=== PATIENT | female | born 1930 | race Caucasian/White ===

== ENCOUNTER → 2016-06-16 | Outpatient (CLI) | payer MEDICARE, OTHER | END | disposition home or self-care (01) | LOC: PCVCCLINIC 11:28 | PROVIDERS: ATTEND Internal Medicine | DX: I25.10 Atherosclerotic heart disease of native coronary artery without angina pectoris (principal); I35.0 Nonrheumatic aortic (valve) stenosis; I65.29 Occlusion and stenosis of unspecified carotid artery; I10 Essential (primary) hypertension; E78.5 Hyperlipidemia, unspecified; I73.9 Peripheral vascular disease, unspecified | CPT/HCPCS: 80061; 93005; G0463 ==

== ENCOUNTER → 2016-12-22 | Outpatient (CLI) | payer MEDICARE, OTHER ==
--- NOTE | 2016-12-22 09:00 | PCVCIMAG ---
APPROVED REPORT Study performed: 12/22/2016 08:00:53 EXAM: Comprehensive 2D, Doppler, and color-flow Echocardiogram Patient Location: Echo lab Status: routine BSA: 1.54 HR: 71 bpmBP: 130/70 mmHg Rhythm: NSR w/ PVCs Other Information Study Quality: Adequate Indications CAD Aortic Stenosis, CABG 2D Dimensions LVEF(%): 26.80 (>50%) IVSd: 11.97 (7-11mm)LVOT Diam: 22.00 (18-24mm) LVDd: 34.79 mm PWd: 11.58 (7-11mm) LVDs: 30.59 (25-40mm) Left Atrium: 42.00 (27-40mm) Aortic Root: 32.42 mm LV Single Plane 4CH: 55.70 % LV Single Plane 2CH: 55.51 %Mallory's LVEF: 55.60 % Biplane EF: 56.0 % Volumes Left Atrial Volume (Systole) Single Plane 4CH: 73.88 mLSingle Plane 2CH: 100.71 mL LA ESV Index: 57.00 mL/m2 Aortic Valve AoV Peak Juan.: 2.65 m/s AO Peak Gr.: 28.10 mmHgLVOT Max P.67 mmHg AO Mean Gr.: 17.47 mmHgLVOT Mean P.97 mmHg AO V2 Mean: 2.02 m/sLVOT Max V: 0.96 m/s AO V2 VTI: 58.13 cmLVOT Mean V: 0.65 m/s LILIBETH (VTI): 1.45 [id number] V1 VTI: 22.15 cm LILIBETH Vmax: 1.37 cm2 AI Vmax: 4.00 m/sSV (LVOT): 84.15 mL AI [place]: 3.49 m/s2 AI PHT: 342.93 ms Mitral Valve E/A Ratio: 0.6 MV Decel. Time: 346.43 ms MV E Max Juan.: 0.61 m/s MV A Juan.: 1.04 m/s IVRT: 162.63 ms Pulmonary Valve PV Peak Juan.: 0.81 m/sPV Peak Gr.: 2.63 mmHg Pulmonary Vein P Vein S: 0.31 m/sP Vein A: 0.29 m/s P Vein D: 0.42 m/sP Vein A Dur.: 141.9 msec P Vein S/D Ratio: 0.74 Tricuspid Valve TR Peak Juan.: 2.32 m/s TR Peak Gr.: 21.56 mmHg Left Ventricle The left ventricle is normal size. There is normal LV segmental wall motion. Mild concentric left ventricular hypertrophy. Left ventricular systolic function is normal. The left ventricular ejection fraction is within the normal range. LVEF is 55%. Grade I - abnormal relaxation pattern. Right Ventricle The right ventricle is normal size. The right ventricular systolic function is normal. Atria Left atrium is severely dilated. The right atrium size is normal. Aortic Valve The aortic valve is moderately sclerotic. Mild aortic regurgitation. There is mild valvular aortic stenosis. Calculated aortic valve area is 1.4 cm2 with maximum pressure gradient of 28 mmHg and mean pressure gradient of 17 mmHg. Mitral Valve Mild mitral annular calcification. Mild mitral valve regurgitation No evidence of mitral valve stenosis. Tricuspid Valve The tricuspid valve is normal in structure. Mild tricuspid regurgitation with PAP of 29 mmHg. Pulmonic Valve The pulmonary valve is normal in structure. There is no pulmonic valvular regurgitation. Great Vessels The aortic root is normal in size. IVC is normal in size and collapses with >50% inspiration Pericardium There is no pericardial effusion. <Conclusion> Left ventricular systolic function is normal. There is normal LV segmental wall motion. LVEF is 55%. Grade I - abnormal relaxation pattern. Left atrium is severely dilated. The aortic valve is moderately sclerotic. Calculated aortic valve area is 1.4 cm2 with maximum pressure gradient of 28 mmHg and mean pressure gradient of 17 mmHg. Mild mitral annular calcification. Mild mitral valve regurgitation Pulmonary artery pressure of 30mmHg There is no pericardial effusion.
--- NOTE | 2016-12-22 09:29 | PCVCIMAG ---
APPROVED REPORT Indications Stenosis Risk Factors Hypertension: Hyperlipidemia Doppler Spectral Velocity Analysis PSV / EDVPSV / EDV ECA (R) 112 / 8 cm/sECA (L) 102 / 8 cm/s dICA (R) 60 / 11 cm/sdICA (L) 108 / 14 cm/s Sandi (R) 184 / 36 cm/smICA (L) 86 / 16 cm/s pICA (R) 141 / 25 cm/spICA (L) 96 / 18 cm/s Bulb (R) 74 / 9 cm/sBulb (L) 65 / 12 cm/s dCCA (R) 94 / 10 cm/sdCCA (L) 108 / 12 cm/s mCCA (R) 60 / 9 cm/smCCA (L) 92 / 12 cm/s Vert (R) 55 / 8 cm/sVert (L) 46 / 5 cm/s ICA/CCA 1.96ICA/CCA 1.00 Basic Measurements Blood Pressure: Pulses: Right Left RightLeft Brachial(Sitting) 130/[id number]/76mmHgTemporal Real Time B-Mode Imaging Vert. (R)AntegradeVert. (L)Antegrade Findings The right carotid bulb has moderately severe calcified plaque. The right proximal internal carotid artery shows 60-70% stenosis. The right common carotid artery shows <40% stenosis. The right external carotid artery shows no significant stenosis. The left carotid bulb has moderate calcified plaque. The left proximal internal carotid artery shows <40% stenosis. The left common carotid artery shows <40% stenosis. The left external carotid artery shows no significant stenosis. Conclusion 1. Right internal carotid artery stenosis (60-70%) 2. Left internal carotid artery stenosis (<40%) 3. Bilateral common carotid artery stenoses (<40%) 4. Antegrade vertebral flow
== END | disposition home or self-care (01) ==
LOC: PCVCIMAG 07:59
PROVIDERS: ATTEND Internal Medicine
DX: I08.3 Combined rheumatic disorders of mitral, aortic and tricuspid valves (principal); I65.23 Occlusion and stenosis of bilateral carotid arteries; I25.10 Atherosclerotic heart disease of native coronary artery without angina pectoris; I10 Essential (primary) hypertension; I49.3 Ventricular premature depolarization; I73.9 Peripheral vascular disease, unspecified; E78.2 Mixed hyperlipidemia; Z95.1 Presence of aortocoronary bypass graft; Z79.82 Long term (current) use of aspirin; Z88.0 Allergy status to penicillin; Z91.041 Radiographic dye allergy status
CPT/HCPCS: 93306; 93880

== ENCOUNTER → 2017-06-22 | Outpatient (CLI) | payer MEDICARE, OTHER | END | disposition home or self-care (01) | LOC: PCVCCLINIC 10:06 | DX: I25.10 Atherosclerotic heart disease of native coronary artery without angina pectoris (principal); I65.23 Occlusion and stenosis of bilateral carotid arteries; I35.0 Nonrheumatic aortic (valve) stenosis; I10 Essential (primary) hypertension; I73.9 Peripheral vascular disease, unspecified; E78.5 Hyperlipidemia, unspecified; R94.31 Abnormal electrocardiogram [ECG] [EKG]; Z79.82 Long term (current) use of aspirin; Z79.899 Other long term (current) drug therapy; Z88.0 Allergy status to penicillin | CPT/HCPCS: 80061; 93005; G0463 ==

== ENCOUNTER → 2017-12-21 | Outpatient (CLI) | payer MEDICARE, OTHER ==
--- NOTE | 2017-12-21 09:30 | PCVCIMAG ---
APPROVED REPORT Indications Stenosis Doppler Spectral Velocity Analysis PSV / EDVPSV / EDV ECA (R) 129 / 6 cm/sECA (L) 101 / 11 cm/s dICA (R) 69 / 13 cm/sdICA (L) 41 / 12 cm/s Sandi (R) 150 / 24 cm/smICA (L) 95 / 14 cm/s pICA (R) 158 / 39 cm/spICA (L) 104 / 14 cm/s Bulb (R) 55 / 6 cm/sBulb (L) 80 / 13 cm/s dCCA (R) 99 / 12 cm/sdCCA (L) 103 / 10 cm/s mCCA (R) 77 / 9 cm/smCCA (L) 87 / 20 cm/s Vert (R) 131 / 13 cm/sVert (L) 50 / 0 cm/s ICA/CCA 1.60ICA/CCA 1.01 Real Time B-Mode Imaging Vert. (R)AntegradeVert. (L)Antegrade Findings The right carotid bulb has moderately severe plaque. The right proximal internal carotid artery shows 60-70% stenosis. The right common carotid artery shows <40% stenosis. The right external carotid artery shows no significant stenosis. The left carotid bulb has moderate calcified plaque. The left proximal internal carotid artery shows <40% stenosis. The left common carotid artery shows <40% stenosis. The left external carotid artery shows no significant stenosis. Conclusion 1. Right internal carotid artery stenosis (60-70%) 2. Left internal carotid artery stenosis (<40%) 3. Bilateral common carotid artery stenoses (<40%) 4. Antegrade vertebral flow
--- NOTE | 2017-12-21 10:21 | PCVCIMAG ---
APPROVED REPORT Study performed: 12/21/2017 08:09:13 EXAM: Comprehensive 2D, Doppler, and color-flow Echocardiogram Patient Location: Echo lab Room #: 2Status: routine BSA: 1.55 HR: 68 bpmBP: 128/80 mmHg Rhythm: NSR Other Information Study Quality: Adequate Risk Factors: Cardiac Risk Factors: HTN Indications Aortic Valve Disease CAD S/P CABG 2D Dimensions IVSd: 9.87 (7-11mm)LVOT Diam: 20.00 (18-24mm) LVDd: 40.06 mm PWd: 10.44 (7-11mm)Ascending Ao: 32.35 (22-36mm) LVDs: 30.54 (25-40mm) Left Atrium: 39.22 (27-40mm) Aortic Root: 22.17 mm LV Single Plane 4CH: 57.09 % LV Single Plane 2CH: 51.24 %Mallory's LVEF: 54.17 % Biplane EF: 54.6 % Volumes Left Atrial Volume (Systole) Single Plane 4CH: 111.80 mLSingle Plane 2CH: 78.26 mL Biplane LA Volume: 98.00 mLLA ESV Index: 63.00 mL/m2 Aortic Valve AoV Peak Juan.: 2.30 m/s AO Peak Gr.: 22.13 mmHgLVOT Max P.33 mmHg AO Mean Gr.: 13.18 mmHgLVOT Mean P.76 mmHg AO V2 Mean: 1.72 m/sLVOT Max V: 0.90 m/s AO V2 VTI: 60.97 cmLVOT Mean V: 0.41 m/s LVOT V1 VTI: 14.61 cm LILIBETH Vmax: 1.20 cm2 AI Vmax: 2.66 m/sSV (LVOT): 43.03 mL AI Latimer: 1.96 m/s2 AI PHT: 444.75 ms Mitral Valve E/A Ratio: 0.9 MV Decel. Time: 230.27 ms MV E Max Juan.: 0.84 m/s MV A Juan.: 0.97 m/s MV Max Juan.: 6.09 m/s MV Mean Juan.: 4.58 m/s IVRT: 152.25 ms TDI E/Lateral E': 12.00E/Medial E': 21.00 Medial E' Juan.: 0.04 m/s Lateral E' Juan.: 0.07 m/s Pulmonary Valve PV Peak Juan.: 0.79 m/sPV Peak Gr.: 2.51 mmHg Pulmonary Vein P Vein S: 0.56 m/sP Vein A: 0.33 m/s P Vein D: 0.51 m/sP Vein A Dur.: 166.1 msec P Vein S/D Ratio: 1.10 Tricuspid Valve TR Peak Juan.: 2.61 m/s TR Peak Gr.: 27.23 mmHg TV Vmax: 0.64 m/sPA Pressure: 34.00 mmHg Left Ventricle The left ventricle is normal size. There is normal left ventricular wall thickness. Left ventricular systolic function is normal. Mild hypokinesis base of inferior wall. LVEF is 55%. Grade I - abnormal relaxation pattern. Right Ventricle The right ventricle is normal size. The right ventricular systolic function is normal. Atria Left atrium is severely dilated. The right atrium size is normal. Aortic Valve Aortic valve is trileaflet. Aortic valve leaflets are moderately sclerotic with decreased opening. Mild aortic regurgitation is present. Moderate aortic stenosis. Highest mean aortic valve gradient is 17 mmHg. Peak aortic valve gradient is 21mmHg. Calculated LILIBETH by the continuity equation is 1.2 cm2. Mitral Valve Mitral valve leaflets are mildly thickened and calcified. Mild to moderate mitral regurgitation. No evidence of mitral valve stenosis. Tricuspid Valve The tricuspid valve is normal in structure. Mild tricuspid regurgitation with a pressure of 34 mmHg. Pulmonic Valve The pulmonary valve is normal in structure. There is no pulmonic valvular regurgitation. Great Vessels The aortic root is normal in size. The ascending aorta is normal in size. Aortic arch is normal in caliber. The inferior vena cava is not visualized. Pericardium There is no pericardial effusion. There is no pleural effusion. <Conclusion> Left ventricular systolic function is normal. Mild hypokinesis base of inferior wall. LVEF is 55%. Grade I - abnormal relaxation pattern. Left atrium is severely dilated. Aortic valve is trileaflet. Mild-moderate aortic stenosis. Peak 21mmHg, mean aortic valve gradient is 17 mmHg. Calculated LILIBETH by the continuity equation is 1.2 cm2. Mild aortic regurgitation Mitral valve leaflets are mildly thickened and calcified. Mild to moderate mitral regurgitation. Mild tricuspid regurgitation with a pulmonary artery pressure of 34 mmHg. There is no pericardial effusion.
== END | disposition home or self-care (01) ==
LOC: PCVCIMAG 13:43
PROVIDERS: ATTEND Internal Medicine
DX: I65.23 Occlusion and stenosis of bilateral carotid arteries (principal); I35.0 Nonrheumatic aortic (valve) stenosis; I25.10 Atherosclerotic heart disease of native coronary artery without angina pectoris; I10 Essential (primary) hypertension; E78.5 Hyperlipidemia, unspecified; I73.9 Peripheral vascular disease, unspecified; Z95.1 Presence of aortocoronary bypass graft; Z88.0 Allergy status to penicillin; Z88.8 Allergy status to other drugs, medicaments and biological substances; Z79.82 Long term (current) use of aspirin; Z79.899 Other long term (current) drug therapy
CPT/HCPCS: 80061; 93005; 93306; 93880; G0463

== ENCOUNTER → 2018-07-19 | Outpatient (CLI) | payer MEDICARE, OTHER | END | disposition home or self-care (01) | LOC: PCVCCLINIC 13:00 | PROVIDERS: ATTEND Internal Medicine | DX: I25.10 Atherosclerotic heart disease of native coronary artery without angina pectoris (principal); I11.0 Hypertensive heart disease with heart failure; I50.32 Chronic diastolic (congestive) heart failure; I35.0 Nonrheumatic aortic (valve) stenosis; I65.23 Occlusion and stenosis of bilateral carotid arteries; E78.5 Hyperlipidemia, unspecified; I73.9 Peripheral vascular disease, unspecified; Z79.82 Long term (current) use of aspirin | CPT/HCPCS: 36415; 80061; 93005; G0463 ==

== ENCOUNTER → 2018-07-19 | Outpatient (CLI) | payer MEDICARE, OTHER ==
--- NOTE | 2018-07-19 22:49 | PCVCIMAG ---
EXAM: VENOUS DUPLEX BOTH LOWER EXTREMITIES INDICATION: Leg pain and swelling. FINDINGS: Right leg: No thrombus in the common femoral, main femoral, or popliteal veins. These veins are compressible with phasic flow. Calf veins are unremarkable where seen. Left leg: No thrombus in the common femoral, main femoral, or popliteal veins. These veins are compressible with phasic flow. Calf veins are unremarkable where seen. IMPRESSION: No evidence of deep venous thrombosis in either lower extremity as detailed above. LOC:[id number]
== END | disposition home or self-care (01) ==
LOC: PCVCIMAG 15:33
PROVIDERS: ATTEND Internal Medicine
DX: M79.604 Pain in right leg (principal); M79.605 Pain in left leg; M79.89 Other specified soft tissue disorders; I25.10 Atherosclerotic heart disease of native coronary artery without angina pectoris; I11.0 Hypertensive heart disease with heart failure; I50.32 Chronic diastolic (congestive) heart failure; I35.0 Nonrheumatic aortic (valve) stenosis; I65.23 Occlusion and stenosis of bilateral carotid arteries; E78.5 Hyperlipidemia, unspecified; I73.9 Peripheral vascular disease, unspecified; R94.31 Abnormal electrocardiogram [ECG] [EKG]; Z88.0 Allergy status to penicillin; Z79.82 Long term (current) use of aspirin; Z79.899 Other long term (current) drug therapy; Z91.041 Radiographic dye allergy status
CPT/HCPCS: 36415; 80061; 93005; 93970; G0463

== ENCOUNTER → 2019-01-24 | Outpatient (CLI) | payer MEDICARE, OTHER | END | disposition home or self-care (01) | LOC: PCVCCLINIC 11:00 | PROVIDERS: ATTEND Internal Medicine | DX: I25.10 Atherosclerotic heart disease of native coronary artery without angina pectoris (principal); I11.0 Hypertensive heart disease with heart failure; I50.32 Chronic diastolic (congestive) heart failure; I35.0 Nonrheumatic aortic (valve) stenosis; I65.23 Occlusion and stenosis of bilateral carotid arteries; I73.9 Peripheral vascular disease, unspecified; Z88.0 Allergy status to penicillin; Z91.041 Radiographic dye allergy status | CPT/HCPCS: 36415; 80061; 93005; G0463 ==

== ENCOUNTER → 2019-01-31 | Outpatient (CLI) | payer MEDICARE, OTHER ==
--- NOTE | 2019-01-31 11:52 | PCVCIMAG ---
EXAM: LEFT LOWER EXTREMITY ARTERIAL DUPLEX INDICATION: Peripheral Arterial Disease. Leg pain. Left foot ulcer. FINDINGS: Left Leg: Moderate blunting of the arterial waveform in the common femoral artery raises concern for significant left iliac stenosis. Profunda femoral artery is patent. Long segment occlusion of the [place] superficial femoral artery with refilling of the mid/upper left popliteal artery. Occlusion of the distal [place] popliteal artery and trifurcation. Flow was not well-visualized in the distal portions of the anterior tibial, peroneal, or posterior tibial arteries. 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 Occlusion throughout the [place] left superficial femoral artery. Occlusion of the distal [place] left popliteal artery and trifurcation as reviewed above. LOC:[id number]
== END | disposition home or self-care (01) ==
LOC: PCVCIMAG 10:53
PROVIDERS: ATTEND Nuclear Medicine Nuclear Cardiology
DX: I73.9 Peripheral vascular disease, unspecified (principal); L97.529 Non-pressure chronic ulcer of other part of left foot with unspecified severity; Z88.0 Allergy status to penicillin; Z91.041 Radiographic dye allergy status
CPT/HCPCS: 93926

== ENCOUNTER → 2019-02-06 | Outpatient (CLI) | payer MEDICARE, OTHER | END | disposition home or self-care (01) | LOC: PCVCCLINIC 10:20 | PROVIDERS: ATTEND Nuclear Medicine Nuclear Cardiology | DX: I73.9 Peripheral vascular disease, unspecified (principal); I25.10 Atherosclerotic heart disease of native coronary artery without angina pectoris; I11.0 Hypertensive heart disease with heart failure; I50.32 Chronic diastolic (congestive) heart failure; E78.00 Pure hypercholesterolemia, unspecified; E78.5 Hyperlipidemia, unspecified; Z79.82 Long term (current) use of aspirin; Z88.0 Allergy status to penicillin | CPT/HCPCS: G0463 ==